=== PATIENT | male | born 1965 | race Asian ===

== ENCOUNTER 2018-09-06 08:31 | Inpatient (IN) | payer OTHER ==
[~2018-09-06] VITALS: Ht 165.1 cm; Wt 82.9 kg
[2018-09-06 09:21] LABS: Basophils # (auto) 0.1 uL; Basophils % (auto) 0.7 % (0.0-2.0); Eosinophils # (auto) 0.4 uL; Eosinophils % (auto) 4.8 % (0.0-7.0); Hematocrit 50.8 % (41.0-53.0); Hemoglobin 16.7 g/dL (13.5-17.5); Lymphocytes # (auto) 2.3 uL; Lymphocytes % (auto) 29.5 % (10.0-50.0); Mean Corpuscular Hemoglobin 28.8 pg (28.0-32.0); Mean Corpuscular Hgb Conc. 32.9 g/dL (32.0-36.0); Mean Corpuscular Volume 87.4 fL (80.0-100.0); Monocytes # (auto) 0.6 uL; Monocytes % (auto) 7.7 % (0.0-12.0); Neutrophils # (auto) 4.5 uL; Neutrophils % (auto) 57.3 % (37.0-80.0); Nucleated Red Blood Cells % 0.1 %; Platelet Count (auto) 220 10^3/uL (140-450); Red Blood Cells 5.82 10^6/uL (4.5-5.90); Red Cell Distribution Width 14.3 % (11.8-14.3); White Blood Cell 7.8 10^3/uL (4.4-10.8)
[2018-09-06 09:35] LABS: Alanine Aminotransferase 87 U/L (16-61); Albumin 3.9 g/dL (3.4-5.0); Anion Gap 6 (5-15); Aspartate Aminotransferase 37 U/L (15-37); BUN/Creatinine Ratio 14.3; Blood Urea Nitrogen 18 mg/dL (7-18); Calcium 8.9 mg/dL (8.5-10.1); Carbon Dioxide 25 mmol/L (21-32); Chloride 108 mmol/L (98-107); GFR African American 78 mL/min; GFR Non-African American 64 mL/min; Glucose 95 mg/dL (74-106); Potassium 4.4 mmol/L (3.5-5.1); Sodium 139 mmol/L (136-145)
[2018-09-06 09:39] LABS: Alkaline Phosphatase 73 U/L (45-117); Bilirubin, Total 0.3 mg/dL (0.2-1.0)
[2018-09-06 13:09] LABS: Urine WBC None Seen /hpf (0 - 3)
[2018-09-06 13:17] LABS: Urine Bacteria NONE SEEN /hpf (None Seen); Urine Blood Negative /uL (Negative)
[2018-09-06] MEDS: SODIUM CHLORIDE 0.9% 1,000 ML IV SCH (13:54)
[2018-09-06 13:59] LABS: Amylase 90 U/L (25-115); Lipase 165 U/L (73-393)
[2018-09-06] MEDS ORDERED: NITROGLYCERIN 0.4 MG SL TAB SL PRN (14:00)
[2018-09-06] MEDS ORDERED: LORazepam 0.5 MG TAB PO PRN (14:00)
[2018-09-06] MEDS ORDERED: cefTRIAXone 1GM/50ML D5W 50 ML IV ONE (14:00)
[2018-09-06] MEDS ORDERED: PROMETHAZINE HCL 25 MG/ML 1ML IV PRN (14:00)
[2018-09-06] MEDS ORDERED: TEMAZEPAM 15 MG CAP PO PRN (14:00)
[2018-09-06] MEDS ORDERED: MORPHINE SULFATE 10 MG/ML INJ 1ML SDV IV PRN ×3 (14:00)
[2018-09-06] MEDS ORDERED: PANTOPRAZOLE 40 MG TAB PO ONE (14:15)
[2018-09-06] MEDS ORDERED: metroNIDAZOLE 500MG/100ML 100 ML IV ONE (14:15)
[2018-09-06 15:30] LABS: INR 0.92 (0.9-1.15); Prothrombin Time 9.9 sec (9.27-12.13)
[2018-09-06] MEDS ORDERED: GOLYTELY 4L KIT PO ONE (16:15)
[2018-09-06] MEDS ORDERED: metroNIDAZOLE 500MG/100ML 100 ML IV SCH (18:00)
[2018-09-06 20:00] VITALS: BP 129/91
--- NOTE | 2018-09-06 20:23 | NUR ---
Telemetry admit from ER DANIE HORTON admitted to Telemetry unit after SBAR received. Patient oriented to Marianela Degroot, primary RN, unit, room, bed, and unit policies regarding patient care and visiting hours. Patient now on continuous telemetry monitoring, tele box # [id number] and telemetry reading on arrival to unit is Sinus rhythm 62. Patient placed on bedside oxygen, weighed by bedscale and encouraged to call if they need something. All questions and concerns addressed, patient verbalized understanding. Note:
--- NOTE | 2018-09-06 20:30 | NUR ---
Patient resumed drinking Go-lytely for EGD and colonoscopy in AM. Patient aware to complete 2/3 no later than midnight. Patient also aware that he can not eat nor drink after midnight. Care continued.
[2018-09-06 20:44] VITALS: BP 129/91
--- NOTE | 2018-09-07 | NUR ---
2/3 bottle of Go-lytely consumed. Patient verbalized last BM was yellowish liquid. Care continued.
[2018-09-07] MEDS: SODIUM CHLORIDE 0.9% 1,000 ML IV SCH ×2 (00:32→09:54)
[2018-09-07 05:41] VITALS: BP 129/90
[2018-09-07] MEDS ORDERED: GOLYTELY 4L KIT PO ONE (06:00)
--- NOTE | 2018-09-07 06:00 | NUR ---
Patient started drinking remaining 1/3 of G0-lytely as ordered by MD. Care continued.
--- NOTE | 2018-09-07 06:15 | NUR ---
Patient signed consents for EGD and colonoscopy. Care continued.
--- NOTE | 2018-09-07 06:30 | NUR ---
Patient consumed the remaining 1/3 of Go-lytely as ordered by MD. Patient verbalized he's been having clear yellowish liquid stool. Procedure preparation had been tolerated well. Will give report to oncoming RN.
[2018-09-07 06:58] LABS: Potassium 3.9 mmol/L (3.5-5.1)
[2018-09-07 06:59] LABS: Basophils # (auto) 0 uL; Basophils % (auto) 0.6 % (0.0-2.0); Eosinophils # (auto) 0.3 uL; Eosinophils % (auto) 4.8 % (0.0-7.0); Hematocrit 44.7 % (41.0-53.0); Lymphocytes # (auto) 1.6 uL; Lymphocytes % (auto) 28.8 % (10.0-50.0); Mean Corpuscular Hemoglobin 29.1 pg (28.0-32.0); Mean Corpuscular Hgb Conc. 33.5 g/dL (32.0-36.0); Mean Corpuscular Volume 86.9 fL (80.0-100.0); Monocytes # (auto) 0.4 uL; Monocytes % (auto) 7.1 % (0.0-12.0); Neutrophils # (auto) 3.2 uL; Neutrophils % (auto) 58.7 % (37.0-80.0); Nucleated Red Blood Cells % 0.1 %; Platelet Count (auto) 207 10^3/uL (140-450); Red Blood Cells 5.14 10^6/uL (4.5-5.90); Red Cell Distribution Width 14.1 % (11.8-14.3); White Blood Cell 5.4 10^3/uL (4.4-10.8)
[2018-09-07 07:06] LABS: Albumin 3.2 g/dL (3.4-5.0); BUN/Creatinine Ratio 12.6; Bilirubin, Total 0.6 mg/dL (0.2-1.0); Calcium 7.9 mg/dL (8.5-10.1); Total Protein 6.4 g/dL (6.4-8.2)
[2018-09-07 07:09] LABS: Amylase 68 U/L (25-115); Lipase 154 U/L (73-393)
[2018-09-07 08:00] VITALS: BP 130/82
--- NOTE | 2018-09-07 08:15 | NUR ---
MRI PT UNABLE TO TOLERATE MRI, PT BROUGHT DIRECTLY TO GI LAB FOR EGD AND COLONOSCOPY, CHART BROUGHT TO GI LAB.
[2018-09-07 09:00] VITALS: BP 130/82
[2018-09-07] MEDS ORDERED: cefTRIAXone 1GM/50ML D5W 50 ML IV SCH (09:00)
[2018-09-07] MEDS ORDERED: SODIUM CHLORIDE LOCK 10 ML ONE (09:08)
[2018-09-07] MEDS ORDERED: diphenhdrAMINE HCL 50 MG/1 ML VL ONE (09:08)
[2018-09-07] MEDS ORDERED: LIDOCAINE VISCOUS 2% 15ML UD ONE (09:08)
--- NOTE | 2018-09-07 09:08 | NUR ---
assessment Per consult no pcp. Winnie Brown to see patient for PCP. Addendum: 09/08/18 at 1708 by Winnie Mcdaniel Amended: Links added.
--- NOTE | 2018-09-07 09:10 | NUR ---
RECEIVED REPORT FROM MAVIS CONONLLY IN PACU
[2018-09-07] MEDS: MIDAZOLAM HCL 5 MG/ML-1ML VIAL ONE ×3 (09:13→09:24)
[2018-09-07] MEDS: fentaNYL CITRATE 100 MCG/2 ML VL ONE ×3 (09:13→09:24)
[2018-09-07] MEDS ORDERED: PANTOPRAZOLE 40 MG TAB PO SCH ×2 (10:00)
[2018-09-07 13:00] VITALS: BP 126/88
--- NOTE | 2018-09-07 13:28 | NUR ---
PT SEEN BY DR. KRISHNAN PER DR. KRISHNAN PT CAN GO HOME AND WILL FOLLOW UP WITH DR. HERNANDEZ FOR BIOPSY RESULT.
--- NOTE | 2018-09-07 14:15 | NUR ---
PT REFERRED TO YEMI COREA, PT HAS INSURANCE BUT NO PCP. PER YEMI SHE WILL COME SEE THE PT.
--- NOTE | 2018-09-07 14:35 | NUR ---
PT SEEN BY YEMI COREA, PT INSTRUCTED TO CALL HIS INSURANCE TO FIND OUT HIS PCP AND CALL TO MAKE APPOINTMENT. PT VERBALIZED UNDERSTANDING.
--- NOTE | 2018-09-07 15:30 | NUR ---
Discharge instructions given as ordered. Encourage to follow up with DR. HERNANDEZ IN 10 DAYS FOR BIOPSY RESULT, TEL# AND ADDRESS PROVIDED TO THE PT. INSTRUCTED TO CALL HIS INSURANCE TO CHECK HIS PRIMARY DOCTOR AND FOLLOW UP. as instructed. All questions and concerns addressed. Patient verbalized understanding. Medication reconciliation form completed and copy given to patient. IV removed with catheter intact, pressure dressing applied. Telemetry unit returned to ICU. Patient PREFERRED TO WALK to vehicle with all personal belongings, accompanied by staff and NAWAF. No distress noted at time of departure.
== END 2018-09-07 15:30 | disposition home or self-care (01) | DRG 392 ==
LOC: ER 08:36 → TELE 13:57 → TELE-CENTR 20:23
PROVIDERS: ADMIT Internal Medicine; ATTEND Family Medicine
PROC: 0DB68ZX Excision of Stomach, Via Natural or Artificial Opening Endoscopic, Diagnostic (ICD-10-PCS; principal; 2018-09-07)
PROC: 0DBP8ZX Excision of Rectum, Via Natural or Artificial Opening Endoscopic, Diagnostic (ICD-10-PCS; 2018-09-07)
DX: K29.60 Other gastritis without bleeding (principal); K21.0 Gastro-esophageal reflux disease with esophagitis; K29.80 Duodenitis without bleeding; K57.30 Diverticulosis of large intestine without perforation or abscess without bleeding; K76.0 Fatty (change of) liver, not elsewhere classified; K62.89 Other specified diseases of anus and rectum; K76.89 Other specified diseases of liver; K82.4 Cholesterolosis of gallbladder; Z82.49 Family history of ischemic heart disease and other diseases of the circulatory system; Z83.3 Family history of diabetes mellitus; Z90.49 Acquired absence of other specified parts of digestive tract
CPT/HCPCS: 36415; 71045; 74176; 76705; 80053; 81001; 82150; 82378; 83690; 84484; 85025; 85610; 85652; 85730; 86141; 93005; 96365; 96367; G0378; J0696; J2250; J3490